=== PATIENT | male | born 2000 | race Caucasian/White ===

== ENCOUNTER 2018-08-17 17:36 | Emergency (ER) | payer OTHER ==
[2018-08-17 20:51] VITALS: BP 106/63
--- NOTE | 2018-08-17 23:07 | ED ---
Headache - HPI Summary HPI Summary: Patient is a 17-year-old male presenting to the ED with acute onset headache after feeling a "pop" to the base of the posterior scalp a few hours [employer]. He states he also felt a small amount of fluid collection present after feeling the "pop" but this since resolved prior to arrival. He took ibuprofen prior to arrival and endorses feeling improved. He denies any visual changes, confusion. He states prior to all of this he felt he tasted blood in his mouth , but denies any trauma or injuries. This also dissipated prior to arrival. Denies any chest pain, shortness of breath or other symptoms at this time. Denies any fevers, sweats, chills. - History Of Current Complaint Chief Complaint: EDHeadache Stated Complaint: HEAD INJURY Time Seen by Provider: 08/17/18 18:54 Hx Obtained From: Patient Initially Headache Was: Initial Pain Scale(0-10)= - 5 Currently Pain Is: Current Pain Scale(0-10)= - 1 Timing: Constant Character: Throbbing Aggravating Factor: Nothing Allevating Factors: Nothing Associated Signs And Symptoms: Negative - Risk Factors SAH Risk Factors: Negative Meningitis Risk Factors: Negative SDH Risk Factors: Negative Temporal Arteritis Risk Factors: Negative - Allergies/Home Medications Allergies/Adverse Reactions: Allergies Allergy/AdvReac Type Severity Reaction Status Date / Time No Known Allergies Allergy Verified 08/17/18 18:54 PMH/Surg Hx/FS Hx/Imm Hx Previously Healthy: Yes - Immunization History Hx Pertussis Vaccination: No Immunizations Up to Date: Yes Infectious Disease History: No Infectious Disease History: Denies: Traveled Outside the [place] in Last 30 Days - Social History Occupation: Unemployed Lives: With Family Alcohol Use: None Hx Substance Use: No Substance Use Type: Reports: None Hx Tobacco Use: No Smoking Status (MU): Never Smoked Tobacco Review of Systems Constitutional: Negative Negative: Fever, Chills, Fatigue, Skin Diaphoresis Negative: Palpitations, Chest Pain Negative: Shortness Of Breath, Cough Genitourinary: Negative Positive: no symptoms reported, see HPI Negative: Arthralgia, Myalgia Skin: Negative Neurological: Negative All Other Systems Reviewed And Are Negative: Yes Physical Exam Triage Information Reviewed: Yes Vital Signs On Initial Exam: Initial Vitals Temp Pulse Resp BP Pulse Ox 98.7 F 95 14 124/76 97 08/17/18 17:40 08/17/18 17:40 08/17/18 17:40 08/17/18 17:40 08/17/18 17:40 Vital Signs Reviewed: Yes Appearance: Positive: Well-Appearing, Well-Nourished Skin: Positive: Warm, Skin Color Reflects Adequate Perfusion Head/Face: Positive: Normal Head/Face Inspection Eyes: Positive: EOMI, ANAIS, Conjunctiva Clear Neck: Positive: Supple, Nontender, No Lymphadenopathy Respiratory/Lung Sounds: Positive: Clear to Auscultation, Breath Sounds Present Cardiovascular: Positive: RRR, Pulses are Symmetrical in both Upper and Lower Extremities Musculoskeletal: Positive: Normal, Strength/ROM Intact Neurological: Positive: Sensory/Motor Intact, Alert, Oriented to Person Place, Time, CN Intact II-III, Speech Normal Psychiatric: Positive: Normal, Affect/Mood Appropriate AVPU Assessment: Alert Diagnostics - Vital Signs Vital Signs Temp Pulse Resp BP Pulse Ox 08/17/18 20:50 97.3 F 81 16 106/63 98 08/17/18 20:33 98.3 F 81 16 116/71 98 08/17/18 17:40 98.7 F 95 14 124/76 97 - Laboratory Lab Statement: Any lab studies that have been ordered have been reviewed, and results considered in the medical decision making process. Headache Course/Dx - Course Course Of Treatment: During the course treatment, the patient is feeling much improved prior to physical examination. There is no fluid collection at this time. Denies any head pain at this time. Denies any visual changes or blurry or double vision. There is no evidence of trauma. Neuro exam intact. Patient denies confusion or memory loss. He will be diagnosed with cervical strain which is since resolved. Encouraged ibuprofen and heat packs to the area. - Diagnoses Provider Diagnoses: Cervical strain, acute Discharge - Sign-Out/Discharge Documenting (check all that apply): Patient Departure - Discharge Plan Condition: Stable Disposition: HOME Referrals: [facility] - Mendel YBARRA [Primary Care Provider] - Additional Instructions: Ibpuprofen 600mg three times if you continue to have discomfort - Billing Disposition and Condition Condition: STABLE Disposition: Home
== END 2018-08-17 20:50 | disposition home or self-care (01) ==
LOC: ED 17:36
DX: S16.1XXA Strain of muscle, fascia and tendon at neck level, initial encounter (principal); X58.XXXA Exposure to other specified factors, initial encounter; Y92.9 Unspecified place or not applicable
CPT/HCPCS: 99282